=== PATIENT | male | born 1990 | race Caucasian/White ===

== ENCOUNTER 2019-01-14 03:45 | Emergency (ER) | payer OTHER, SELFPAY ==
[2019-01-14] MEDS ORDERED: NA CHLORIDE 0.9% 1,000 ML ONE (04:29)
[2019-01-14 04:36] LABS: Absolute Lymphocytes (CBC) 2.1 K/uL (0.7-4.9); Absolute Monocytes 0.6 K/uL (0.1-1.3); Basophils % 0.7 % (0-1.3); Lymphocytes % 29.4 % (15.3-44.8); MPV 9.9 fL (7.6-11.3); Monocytes % 8.8 % (3.3-12.3); RBC Red Blood Cell Count 5.83 M/uL (4.33-5.43)
[2019-01-14 04:42] LABS: Potassium 3.3 mmol/L (3.5-5.1)
[2019-01-14 05:16] LABS: Blood Morphology Comment NOTED (NOT SEEN); Hypochromasia 1+; Ovalocytes 2+; Platelet Estimate ADEQ; Urine White Blood Cell Casts OK
[2019-01-14] MEDS ORDERED: POTASSIUM CL SA 10 MEQ TAB PO ONE (05:21)
[2019-01-14 06:00] LABS: Urine Blood NEGATIVE (NEG); Urine Glucose NEGATIVE (NEG); Urine Protein NEGATIVE (NEG); Urine Specific Gravity 1.015 (1.005-1.030); Urine pH 5.5 (5.0-7.0)
--- NOTE | 2019-01-14 06:53 | EDPHYS ---
Physician Documentation [facility] Name: Joshua Haynes Age: 28 yrs Sex: Male : 1990 Arrival Date: 01/14/2019 Time: 03:46 Bed 6 Private MD: ED Physician Luis Ibrahim HPI: 01/14 04:02 This 28 yrs old Male presents to ER via Wheelchair with complaints of kdr Probable Seizure. 04:02 The patient presents after having a single isolated seizure, that lasted. Character of kdr seizure(s): Loss of consciousness: the patient experienced loss of consciousness, Motor activity: generalized, shaking all over, Incontinence: none, Apnea: the patient did not experience apnea, Circulation: the patient did not experience evidence of pulse disturbance. Seizure onset: just prior to arrival. Context: the seizure(s) was witnessed, by family, occurred at home, occurred while the patient was The patient was drinking a coke when he began to choke, fell to his knees than collapsed and began shaking all over for a few seconds. Within less than a minute, he was back to baseline. He felt some low occipital pressure in route but other simpson has no current c/o. Seizure Hx: the patient has no previous seizure history. Associated injury: The patient did not suffer any apparent associated injury. Current symptoms: Currently, the patient is not experiencing any symptoms. The patient has not experienced similar symptoms in the past. The patient has not recently seen a physician. Historical: - Allergies: 04:01 No Known Allergies; fc - Home Meds: 04:01 None [Active]; fc - PMHx: 04:01 Kidney stones; fc - PSHx: 04:01 Lithotripsy; fc - Immunization history:: Last tetanus immunization: unknown. - Social history:: Smoking status: Patient uses tobacco products, smokes one pack cigarettes per day. Patient uses alcohol, occasionally. street drugs, marijuana. - Ebola Screening: : Patient negative for fever greater than or equal to 101.5 degrees Fahrenheit, and additional compatible Ebola Virus Disease symptoms Patient denies exposure to infectious person Patient denies travel to an Ebola-affected area in the 21 days before illness onset. ROS: 04:02 Constitutional: Negative for fever, chills, and weight loss, Eyes: Negative for injury, kdr pain, redness, and discharge, ENT: Negative for injury, pain, and discharge, Neck: Negative for injury, pain, and swelling, Cardiovascular: Negative for chest pain, palpitations, and edema, Respiratory: Negative for shortness of breath, cough, wheezing, and pleuritic chest pain, Abdomen/GI: Negative for abdominal pain, nausea, vomiting, diarrhea, and constipation, Back: Negative for injury and pain, : Negative for injury, bleeding, discharge, and swelling, MS/Extremity: Negative for injury and deformity, Skin: Negative for injury, rash, and discoloration, Psych: Negative for depression, anxiety, suicide ideation, homicidal ideation, and hallucinations, Allergy/Immunology: Negative for hives, rash, and allergies, Endocrine: Negative for neck swelling, polydipsia, polyuria, polyphagia, and marked weight changes, Hematologic/Lymphatic: Negative for swollen nodes, abnormal bleeding, and unusual bruising. 04:02 Neuro: Positive for seizure activity, Negative for altered mental status, dizziness, gait disturbance, headache, hearing loss, numbness, speech changes, tingling, tinnitus, tremor, visual changes, weakness. Exam: 04:02 Constitutional: This is a well developed, well nourished patient who is awake, alert, kdr and in no acute distress. Head/Face: Normocephalic, atraumatic. Eyes: Pupils equal round and reactive to light, extra-ocular motions intact. Lids and lashes normal. Conjunctiva and sclera are non-icteric and not injected. Cornea within normal limits. Periorbital areas with no swelling, redness, or edema. Neck: Trachea midline, no thyromegaly or masses palpated, and no cervical lymphadenopathy. Supple, full range of motion without nuchal rigidity, or vertebral point tenderness. No Meningismus. Chest/axilla: Normal chest wall appearance and motion. Nontender with no deformity. No lesions are appreciated. Cardiovascular: Regular rate and rhythm with a normal S1 and S2. No gallops, murmurs, or rubs. Normal PMI, no JVD. No pulse deficits. Respiratory: Lungs have equal breath sounds bilaterally, clear to auscultation and percussion. No rales, rhonchi or wheezes noted. No increased work of breathing, no retractions or nasal flaring. Abdomen/GI: Soft, non-tender, with normal bowel sounds. No distension or tympany. No guarding or rebound. No evidence of tenderness throughout. Back: No spinal tenderness. No costovertebral tenderness. Full range of motion. Skin: Warm, dry with normal turgor. Normal color with no rashes, no lesions, and no evidence of cellulitis. MS/ Extremity: Pulses equal, no cyanosis. Neurovascular intact. Full, normal range of motion. Neuro: Awake and alert, GCS 15, oriented to person, place, time, and situation. Cranial nerves II-XII grossly intact. Motor strength 5/5 in all extremities. Sensory grossly intact. Cerebellar exam normal. Normal gait. Psych: Awake, alert, with orientation to person, place and time. Behavior, mood, and affect are within normal limits. Vital Signs: 03:50 BP 125 / 95; Pulse 72; Resp 18; Temp 98.0(O); Pulse Ox 100% on R/A; Weight 72.57 kg fc (R); Height 5 ft. 9 in. (175.26 cm) (R); Pain 2/10; 05:11 BP 115 / 84; Pulse 69; Resp 16 S; Pulse Ox 100% on R/A; jd3 07:15 BP 127 / 90; Pulse 70; Resp 16 S; Pulse Ox 100% on R/A; jd3 03:50 Body Mass Index 23.63 (72.57 kg, 175.26 cm) Jarrett Coma Score: 03:50 Eye Response: spontaneous(4). Verbal Response: oriented(5). Motor Response: obeys commands(6). Total: 15. MDM: 04:02 Data reviewed: vital signs, nurses notes, lab test result(s). Counseling: I had a kdr detailed discussion with the patient and/or guardian regarding: the historical points, exam findings, and any diagnostic results supporting the discharge/admit diagnosis, lab results, radiology results, the need for outpatient follow up. 06:52 Medical screening is not applicable. kdr 01/14 04:02 Order name: CBC with Diff; Complete Time: 05:21 kdr 01/14 04:02 Order name: Chem 7; Complete Time: 05:03 kdr 01/14 04:02 Order name: CT Head Brain wo Cont kdr 01/14 04:02 Order name: Urine Drug Screen kdr 01/14 04:41 Order name: CBC Smear Scan; Complete Time: 05:21 EDMS 05/12 05:51 Order name: Urine Dipstick--Ancillary (enter results); Complete Time: 06:20 cm6 Administered Medications: 04:19 Drug: NS 0.9% 1000 ml Route: IV; Rate: 5 bolus; Site: right antecubital; jd3 05:30 Follow up: Response: No adverse reaction; IV Status: Completed infusion; IV Intake: jd3 1000ml 05:10 Drug: Potassium Chloride 40 mEq Route: PO; jd3 06:10 Follow up: Response: No adverse reaction jd3 Disposition: 01/14/19 06:52 Discharged to Home. Impression: Vasovagal Syncopy. - Condition is Stable. - Discharge Instructions: Vasovagal Syncope, Adult. - Medication Reconciliation Form, Thank You Letter form. - Follow up: Private Physician; When: 2 - 3 days; Reason: If symptoms return, Further diagnostic work-up, Recheck today's complaints, Continuance of care, Re-evaluation by your physician. - Problem is new. - Symptoms are resolved. Signatures: Dispatcher [employer] [facility] Luis Ibrahim MD MD kdr Yael Gar RN RN Chaka Kenney RN RN jd3 Corrections: (The following items were deleted from the chart) 07:16 06:52 01/14/2019 06:52 Discharged to Home. Impression: Vasovagal Syncopy. Condition is jd3 Stable. Forms are Medication Reconciliation Form, Thank You Letter, Antibiotic Education, Prescription Opioid Use. Follow up: Private Physician; When: 2 - 3 days; Reason: If symptoms return, Further diagnostic work-up, Recheck today's complaints, Continuance of care, Re-evaluation by your physician. Problem is new. Symptoms are resolved. kdr
--- NOTE | 2019-01-14 06:53 | ER ---
Nurse's Notes [facility] Name: Joshua Haynes Age: 28 yrs Sex: Male : 1990 Arrival Date: 01/14/2019 Time: 03:46 Bed 6 Private MD: Diagnosis: Vasovagal Syncopy Presentation: 01/14 03:50 Presenting complaint: Patient states: that he was drinking a soda then coughed and fc choked. states he then blacked out and started to shake x 10 secs. states that he was confused for additional 3 minutes. At this time he is having pressure to back of head and trouble focusing. Transition of care: patient was not received from another setting of care. Onset of symptoms was January 14, 2019 at 02:30. Risk Assessment: Do you want to hurt yourself or someone else? Patient reports no desire to harm self or others. Initial Sepsis Screen: Does the patient meet any 2 criteria? No. Patient's initial sepsis screen is negative. Does the patient have a suspected source of infection? No. Patient's initial sepsis screen is negative. Care prior to arrival: None. 03:50 Method Of Arrival: Wheelchair fc 03:50 Acuity: JOHN 3 fc Historical: - Allergies: 04:01 No Known Allergies; fc - Home Meds: 04:01 None [Active]; fc - PMHx: 04:01 Kidney stones; fc - PSHx: 04:01 Lithotripsy; fc - Immunization history:: Last tetanus immunization: unknown. - Social history:: Smoking status: Patient uses tobacco products, smokes one pack cigarettes per day. Patient uses alcohol, occasionally. street drugs, marijuana. - Ebola Screening: : Patient negative for fever greater than or equal to 101.5 degrees Fahrenheit, and additional compatible Ebola Virus Disease symptoms Patient denies exposure to infectious person Patient denies travel to an Ebola-affected area in the 21 days before illness onset. Screenin:00 Abuse screen: Denies threats or abuse. Nutritional screening: No deficits noted. fc Tuberculosis screening: No symptoms or risk factors identified. Fall Risk None identified. Assessment: 04:20 General: Appears in no apparent distress. uncomfortable, Behavior is calm, cooperative, jd3 appropriate for age. Pain: Complains of pain in head Quality of pain is described as aching. Neuro: Level of Consciousness is awake, alert, obeys commands, Oriented to person, place, time, situation, Appropriate for age Reports headache occipital area, a syncopal episode. Cardiovascular: Capillary refill < 3 seconds Patient's skin is warm and dry. Respiratory: Airway is patent Respiratory effort is even, unlabored, Respiratory pattern is regular, symmetrical, Denies shortness of breath. GI: No signs and/or symptoms were reported involving the gastrointestinal system. : No signs and/or symptoms were reported regarding the genitourinary system. EENT: No signs and/or symptoms were reported regarding the EENT system. Derm: Skin is intact, Skin is dry, Skin is normal, Skin temperature is warm. Musculoskeletal: Circulation, motion, and sensation intact. Range of motion: intact in all extremities. 05:10 Reassessment: Patient appears in no apparent distress at this time. Patient and/or jd3 family updated on plan of care and expected duration. Pain level reassessed. Patient is alert, oriented x 3, equal unlabored respirations, skin warm/dry/pink. 06:18 Reassessment: Patient appears in no apparent distress at this time. Patient and/or jd3 family updated on plan of care and expected duration. Pain level reassessed. Patient is alert, oriented x 3, equal unlabored respirations, skin warm/dry/pink. 07:15 Reassessment: Patient appears in no apparent distress at this time. Patient and/or jd3 family updated on plan of care and expected duration. Pain level reassessed. Patient is alert, oriented x 3, equal unlabored respirations, skin warm/dry/pink. Patient states feeling better. Vital Signs: 03:50 BP 125 / 95; Pulse 72; Resp 18; Temp 98.0(O); Pulse Ox 100% on R/A; Weight 72.57 kg fc (R); Height 5 ft. 9 in. (175.26 cm) (R); Pain 2/10; 05:11 BP 115 / 84; Pulse 69; Resp 16 S; Pulse Ox 100% on R/A; jd3 07:15 BP 127 / 90; Pulse 70; Resp 16 S; Pulse Ox 100% on R/A; jd3 03:50 Body Mass Index 23.63 (72.57 kg, 175.26 cm) Carlstadt Coma Score: 03:50 Eye Response: spontaneous(4). Verbal Response: oriented(5). Motor Response: obeys commands(6). Total: 15. ED Course: 03:46 Patient arrived in ED. am2 03:50 Arm band placed on Patient placed in an exam room, on a stretcher. fc 03:50 Patient has correct armband on for positive identification. Bed in low position. Call fc light in reach. Side rails up X2. Seizure precautions initiated. Pulse ox on. NIBP on. 03:55 Luis Ibrahim MD is Attending Physician. kdr 03:55 Chaka Kenney, IVELISSE is Primary Nurse. jd3 03:59 Triage completed. fc 04:10 Inserted saline lock: 20 gauge in right antecubital area, using aseptic technique. jd3 Blood collected. 04:38 CT Head Brain wo Cont In Process Unspecified. EDMS 07:14 No provider procedures requiring assistance completed. IV discontinued, intact, jd3 bleeding controlled, No redness/swelling at site. Pressure dressing applied. Administered Medications: 04:19 Drug: NS 0.9% 1000 ml Route: IV; Rate: 5 bolus; Site: right antecubital; jd3 05:30 Follow up: Response: No adverse reaction; IV Status: Completed infusion; IV Intake: jd3 1000ml 05:10 Drug: Potassium Chloride 40 mEq Route: PO; jd3 06:10 Follow up: Response: No adverse reaction jd3 Intake: 05:30 IV: 1000ml; Total: 1000ml. jd3 Outcome: 06:52 Discharge ordered by . kdr 07:15 Discharged to home ambulatory, with family. jd3 07:15 Condition: stable 07:15 Discharge instructions given to patient, family, Instructed on discharge instructions, follow up and referral plans. Demonstrated understanding of instructions, follow-up care. 07:16 Patient left the ED. jd3 Signatures: Dispatcher [employer] EDMS Luis Ibrahim MD MD [facility] Yael Gar RN RN Laurie Howard [facility] Chaka Kenney, IVELISSE RN jd3 Corrections: (The following items were deleted from the chart) 04:22 04:20 Neuro: Level of Consciousness is awake, alert, obeys commands, Oriented to jd3 person, place, time, situation, Appropriate for age jd3
[2019-01-14 07:05] LABS: Barbiturates NEGATIVE (NEGATIVE); Benzodiazepines NEGATIVE (NEGATIVE); Cocaine NEGATIVE (NEGATIVE); METHAMPHETAM NEGATIVE (NEGATIVE); Methadone NEGATIVE (NEGATIVE); Opiates NEGATIVE (NEGATIVE); Phencyclidine NEGATIVE (NEGATIVE); THC Cannibis POSITIVE (NEGATIVE)
--- NOTE | 2019-01-15 10:02 | RAD REPORT ---
EXAM DESCRIPTION: CT - Head Brain Wo Cont - 01/14/2019 5:23 am CLINICAL HISTORY: The patient is 28 years old and is Male; Possible seizure TECHNIQUE: Axial computed tomography images of the head/brain without intravenous contrast. Sagitt al and coronal reformatted images were created and reviewed. This CT exam was performed using one o r more of the following dose reduction techniques: automated exposure control, adjustment of the mA and/or kV according to patient size, and/or use of iterative reconstruction technique. COMPARISON: No relevant prior studies available. FINDINGS: BRAIN: Unremarkable. The bergeron-white matter differentiation is preserved . No hemorrhag e. No significant white matter disease. No edema. No extra-axial fluid collections. VENTRICLES: Unremarkable. No ventriculomegaly. BONES/JOINTS: No acute fracture. SOFT TISSUES: Unremarkable. SINUSES: Unremarkable as visualized. No acute sinusitis. MASTOID AIR CELLS: Unremarkable as visualized. No mastoid effusion. IMPRESSION: No acute intracranial findings. Electronically signed by: Racquel Olivares MD 01/14/2019 4:43 AM CDT Due to temporary technical issues with the PACS/Fluency reporting system, reports are being signed by the in house radiologist as a courtesy to ensure prompt reporting. The interpreting radiologist is f ully responsible for the content of the report.
== END 2019-01-14 07:16 | disposition home or self-care (01) ==
LOC: ER 03:45
DX: R55 Syncope and collapse (principal); F17.210 Nicotine dependence, cigarettes, uncomplicated; Z87.442 Personal history of urinary calculi
CPT/HCPCS: 36415; 70450; 80048; 80307; 81003; 85025; 96360; 99284; J7030